=== PATIENT | female | born 1960 | race Caucasian/White ===

== ENCOUNTER 2023-12-07 19:59 | Inpatient (IN) | payer BC ==
[2023-12-07] MEDS ORDERED: ONDANSETRON 4 MG/2 ML VIAL ONE (21:06)
[2023-12-07] MEDS ORDERED: HYDROMORPHONE HCL 1 MG/ML INJ ONE ×2 (21:06→23:10)
[2023-12-07 21:15] LABS: Absolute Basophils 0.1 K/uL (0-0.5); Absolute Lymphocytes (CBC) 0.8 K/uL (0.7-4.9); Absolute Monocytes 0.9 K/uL (0.1-1.3); Absolute Neutrophil 11.1 K/uL (1.8-8.0); Basophils % 0.9 % (0-1.3); Hematocrit 31.6 % (36.0-45.0); Hemoglobin 10.7 g/dL (12.0-15.0); Lymphocytes % 6.4 % (15.3-44.8); MCH 34.5 pg (27.0-35.0); MCV 101.3 fL (80-100); Monocytes % 6.8 % (3.3-12.3); Neutrophils % 85.9 % (41.7-73.7); Nucleated RBC Absolute Count 0.2 (0-0); Nucleated Red Blood Cells % 1.2 % (0-0); Platelets 170 thou/uL (152-406); RBC Red Blood Cell Count 3.12 M/uL (3.86-4.86); Red Cell Distribution Width 20.6 % (12.1-15.2)
[2023-12-07 21:40] LABS: Anisocytosis 1+; Blood Morphology Comment NOTED (NOT SEEN); Platelets Clumped A; White Blood Cell Scan OK (OK)
[2023-12-07 21:41] LABS: Platelet Estimate ADEQ
[2023-12-07 22:06] LABS: Albumin 1.7 g/dL (3.4-5.0); Albumin/Globulin Ratio 0.4 (1.1-1.8); Anion Gap 12.1 mEq/L (5.0-15.0); Bilirubin Total 0.4 mg/dL (0.2-1.0); Globulin 4.8 g/dL (2.3-3.5); Potassium 4.1 mEq/L (3.5-5.1); Protein, Total 6.5 g/dL (6.4-8.2)
--- NOTE | 2023-12-07 22:33 | RAD REPORT ---
EXAMINATION: CT ABDOMEN AND PELVIS WITH CONTRAST CLINICAL INDICATION: Abdominal pain TECHNIQUE: CT abdomen and pelvis was performed, after the administration of 100 cc Isovue-300.. Sagit gisell and coronal reconstructions were obtained. One or more of the following dose reduction techniques were used: Automated exposure control, adjustment of the mA and/or kV according to patien t size, and/or iterative reconstruction. Unless otherwise specified, incidental findings do not require dedicated imaging follow-up. [id number]. Oral contrast was not given which limits evaluation of b owel and appendix. COMPARISON: none FINDINGS: 3.6 cm cyst right lobe of the liver. Spleen, adrenals unremarkable. Horseshoe kidney. Couple tiny calculi. No hydronephrosis. Ill-defined fluid is present between the pancreatic head and neck and inferior aspect of the stomach. The fluid also extends to abutting the second portion of the duodenum. No pseudocyst seen. The pancreas is normal size and density. No evidence of diverticulitis. No adnexal mass. Normal appendix IMPRESSION: Ill-defined fluid adjacent to the pancreas, stomach and duodenum. This probably represents an atypica l appearing pancreatitis. Other considerations are that the fluid is the result of gastric or duodenal inflammation. This should be correlated with pancreatic enzymes. Tiny nonobstructing calculi within a horseshoe kidney
[2023-12-07] MEDS ORDERED: ACETAMINOPHEN 325 MG TABLET PO PRN (22:55)
--- NOTE | 2023-12-07 22:55 | P.HP ---
Certification for Inpatient Patient admitted to: Inpatient With expected LOS: >2 Midnights Practitioner: I am a practitioner with admitting privileges, knowledge of patient current condition, hospital course, and medical plan of care. Services: Services provided to patient in accordance with Admission requirements found in Title 42 Section 412.3 of the Code of Federal Regulations Patient History Date of Service: 12/08/23 Reason for admission: Abdominal pain History of Present Illness: 63 yo female with past medical history of glioblastoma multiforme on chemotherapy brought to ER with abdominal pain. Started having left upper abdominal pain 3 days ago which has been getting worse associated with distention of the abdomen. Denies any nausea vomiting or diarrh ea. No fever or chills. Denies any chest pain or shortness of breath. No sick contacts. Pain is sharp nonradiating 8 out of 10 in severity Patient was assessed in the ER and had a CT which was consistent with possible pancreatitis and was admitted for further management . Allergies No Known Allergies Allergy (Unverified 12/08/23 05:19) Home medications list reviewed: Yes - Past Medical/Surgical History Has patient received pneumonia vaccine in the past: Yes Past Medical History: Reviewed- Non-Contributory -: glioblastoma Past Surgical History: Reviewed- Non-Contributory - Family History Family History: Reviewed- Non-Contributory - Social History Smoking Status: Never smoker Review of Systems 10-point ROS is otherwise unremarkable Physical Examination - Vital Signs Temperature: 97.2 F Blood Pressure: 148/78 Pulse: 76 Respirations: 18 Pulse Ox (%): 94 - Physical Exam General: Alert, In no apparent distress, Oriented x3 HEENT: Atraumatic, Normocephalic Neck: Supple, 2+ carotid pulse no bruit Respiratory: Clear to auscultation bilaterally, Normal air movement Cardiovascular: Normal pulses, Regular rate/rhythm, Normal S1 S2 Capillary refill: <2 Seconds Gastrointestinal: Soft and benign, W/out hepatosplenomegaly, Tenderness Musculoskeletal: No clubbing, No swelling Integumentary: No rashes, No breakdown Neurological: Normal speech, Normal strength at 5/5 x4 extr, Cranial nerves 3-12 intact Lymphatics: No axilla or inguinal lymphadenopathy - Studies Laboratory Data (last 24 hrs) 12/07/23 12/07/23 21:03 21:03 WBC 12.90 H Hgb 10.7 L Hct 31.6 L Plt Count 170 Sodium 135 L Potassium 4.1 BUN 29 H Creatinine 0.96 Glucose 137 H Total Bilirubin 0.4 AST 30 ALT 71 H Alkaline Phosphatase 90 Lipase 70 Assessment and Plan - Plan Intractable abdominal pain CT findings noted Fluid collection in pancreatic head area Pancreatitis versus duodenitis Lipase is normal Started on PPI IV Pain control Hyponatremia Dehydration IV hydration Monitor closely LFTs elevated Trend LFTs Leukocytosis Started on Zosyn GI/DVT prophylaxis Advanced directive full code Discharge Plan: Home Plan to discharge in: 48 Hours - Advance Directives Does patient have a Living Will: No Does patient have a Durable POA for Healthcare: No - Code Status/Comfort Care Code Status: Full Code Time Spent Managing Pts Care (In Minutes): 48
[2023-12-07] MEDS: NA CHLORIDE 0.9% 1,000 ML IV SCH (23:00)
[2023-12-07 23:20] LABS: Sqamous Epithelial <5 /HPF (None Seen); Urine Bacteria None Seen /HPF (<20); Urine Bilirubin NEGATIVE (Negative); Urine Blood Negative (Negative); Urine Clarity Clear (Clear); Urine Color Light-Yellow (Yellow); Urine Culture Reflex Order NOT NEEDED; Urine Glucose NEGATIVE (Negative); Urine Ketones NEGATIVE (Negative); Urine Microscopic Reflex YN ORDER UMIC; Urine Mucus Slight /HPF (None Seen); Urine Nitrite NEGATIVE (Negative); Urine Protein TRACE (Negative); Urine RBC <5 /HPF (None Seen); Urine Urobilinogen Normal (Normal); Urine WBC <5 /HPF (<5); Urine pH 6.5 (5.0-7.0)
[2023-12-07 23:22] LABS: Specific Gravity > 1.030 (1.005-1.030)
--- NOTE | 2023-12-07 23:23 | EDPHYS ---
Physician Documentation [facility] Name: Dunia Lau Age: 63 yrs Sex: Female : 1960 Arrival Date: 12/07/2023 Time: 19:59 Bed 16 Private MD: ED Physician Philippe Ellis HPI: 12/07 01:16 This 63 yrs old Female presents to ER via Wheelchair with complaints of Abdominal Pain. rt 01:16 Patient with history of glioblastoma on chemotherapy presents to the ED with epigastric rt pain rating to the back. Has never had similar symptoms previously. Symptoms have been present for the past 3 days, worsening today. Reports nausea and vomiting. Denies of acute complaints, symptoms are moderate in severity, no other aggravating or alleviating factors.. Historical: - Allergies: 12/06 21:13 No Known Allergies; cm10 - PMHx: 21:13 Glioblastoma Miltiforme; cm10 - Immunization history:: Adult Immunizations up to date. - Infectious Disease History:: Denies. - Social history:: Smoking status: Patient denies any tobacco usage or history of. - Family history:: not pertinent. ROS: 12/07 01:16 Constitutional: Negative for fever, chills, and weight loss, Cardiovascular: Negative rt for chest pain, palpitations, and edema, Respiratory: Negative for shortness of breath, cough, wheezing, and pleuritic chest pain, MS/Extremity: Negative for injury and deformity, Skin: Negative for injury, rash, and discoloration, Neuro: Negative for headache, weakness, numbness, tingling, and seizure, Abdomen/GI: Positive for abdominal pain, nausea, Exam: 01:16 Constitutional: This is a well developed, well nourished patient who is awake, alert, rt and in no acute distress. Head/Face: Normocephalic, atraumatic. Chest/axilla: Normal chest wall appearance and motion. Nontender with no deformity. No lesions are appreciated. Cardiovascular: Regular rate and rhythm with a normal S1 and S2. No gallops, murmurs, or rubs. Normal PMI, no JVD. No pulse deficits. Respiratory: Lungs have equal breath sounds bilaterally, clear to auscultation and percussion. No rales, rhonchi or wheezes noted. No increased work of breathing, no retractions or nasal flaring. Skin: Warm, dry with normal turgor. Normal color with no rashes, no lesions, and no evidence of cellulitis. MS/ Extremity: Pulses equal, no cyanosis. Neurovascular intact. Full, normal range of motion. Neuro: Awake and alert, GCS 15, oriented to person, place, time, and situation. Cranial nerves II-XII grossly intact. Motor strength 5/5 in all extremities. Sensory grossly intact. Cerebellar exam normal. Normal gait. 01:16 Abdomen/GI: Tenderness to the epigastrium, no rebound, guarding, distention, Vital Signs: 12/06 21:12 BP 160 / 88; Pulse 72; Resp 19; Temp 97.7; Pulse Ox 98% on R/A; Weight 81.65 kg; Height cm10 5 ft. 4 in. ; Pain 12/16; 23:00 BP 131 / 98; Pulse 69; Resp 18; Pulse Ox 100% on 3 lpm NC; rg5 12/07 00:00 BP 127 / 89; Pulse 65; Resp 19; Pulse Ox 100% on 3 lpm NC; Pain 07/16; rg5 01:00 BP 111 / 94; Pulse 65; Resp 18; Pulse Ox 100% on R/A; rg5 02:00 BP 124 / 98; Pulse 64; Resp 15; Pulse Ox 100% on R/A; rg5 03:00 BP 116 / 93; Pulse 61; Resp 16; Pulse Ox 100% on R/A; rg5 04:00 BP 98 / 78; Pulse 92; Resp 17; Pulse Ox 100% on R/A; rg5 05:00 BP 112 / 87; Pulse 55; Resp 15; Pulse Ox 100% on R/A; rg5 12/06 21:12 Body Mass Index 30.90 (81.65 kg, 162.56 cm) cm10 12/06 21:12 Pain Scale: Adult cm10 12/07 00:00 Pain Scale: Adult rg5 MDM: 12/06 20:51 Patient medically screened. rt 12/07 01:16 Differential Diagnosis Pancreatitis, gastritis, bowel obstruction. Data reviewed: vital rt signs, nurses notes, lab test result(s), EKG, radiologic studies. Consideration of Admission/Observation Patient was admitted/placed on observation. Management of patient was discussed with the following: Hospitalist: Agrees to admit. I considered the following discharge prescriptions or medication management in the emergency department Medications were administered in the Emergency Department. See MAR. Independent interpretation of the following test(s) in the Emergency Department CT Scan: My interpretation is No bowel obstruction syndrome interpretation of CT scan images. Care significantly affected by the following chronic conditions: GBM. Counseling: I had a detailed discussion with the patient and/or guardian regarding the historical points, exam findings, and any diagnostic results supporting the discharge/admit diagnosis, lab results, radiology results, the need for further work-up and treatment in the hospital. Response to treatment: the patient's symptoms have mildly improved after treatment. 12/06 20:56 Order name: CBC with Diff; Complete Time: 22:35 rt 12/06 20:56 Order name: CMP; Complete Time: 22:35 rt 12/06 20:56 Order name: Lipase; Complete Time: 22:35 rt 12/06 20:56 Order name: Urinalysis w/ reflexes rt 12/06 21:41 Order name: CBC Smear Scan EDMS 12/06 23:00 Order name: Urinalysis w/ reflexes EDMS 12/06 23:00 Order name: CBC with Automated Diff EDMS 12/06 23:00 Order name: CBC with Automated Diff EDMS 12/06 23:00 Order name: Comprehensive Metabolic Panel EDMS 12/06 23:00 Order name: Comprehensive Metabolic Panel EDAR 12/07 09:11 Order name: Manual Differential EDMS 12/06 20:56 Order name: CT Abd/Pelvis - IV Contrast Only; Complete Time: 22:35 rt 12/06 20:56 Order name: IV Saline Lock; Complete Time: 21:03 rt 12/06 20:56 Order name: Labs collected and sent; Complete Time: 21:03 rt Administered Medications: 12/06 21:11 Drug: Ondansetron IVP 4 mg IVP once; over 2 minutes Route: IVP; Site: left antecubital; cm10 22:09 Follow up: Response: No adverse reaction rg5 21:11 Drug: HYDROmorphone IVP 1 mg IVP once Route: IVP; Site: left antecubital; cm10 22:09 Follow up: Response: No adverse reaction; Pain is decreased rg5 23:18 Drug: HYDROmorphone IVP 1 mg IVP once Route: IVP; Site: left antecubital; rg5 12/07 00:00 Follow up: Response: No adverse reaction; Pain is decreased rg5 Disposition Summary: 12/07/23 23:22 Hospitalization Ordered Notes: Hospitalization Status: Inpatient Admission rt Provider: Dilan Greenfield rt Condition: Fair rt Problem: new rt Symptoms: have improved rt Bed/Room Type: Standard rt Location: Telemetry/MedSurg (Inpatient)(12/08/23 11:05) bd Room Assignment: [facility](12/08/23 12:47) Diagnosis - Acute pancreatitis rt Forms: - Medication Reconciliation Form rt - SBAR form rt - Leadership Thank You Letter rt Signatures: Dispatcher [employer] EDMS Ketty Miranda bd Denisse Bowling RN RN iw Philippe Ellis MD MD rt Deonna Low rv1 Rani Eduardo RN RN cm10 Lucian Ayala RN RN rg5 Corrections: (The following items were deleted from the chart) 12/06 20:57 20:57 CBC+H.LAB.BRZ ordered. EDMS EDMS 20:57 20:57 COMPREHENSIVE METABOLIC PANEL+C.LAB.BRZ ordered. EDMS EDMS 20:57 20:57 LIPASE+C.LAB.BRZ ordered. EDMS EDMS 20:57 20:57 Urinalysis+U.LAB.BRZ ordered. EDMS EDMS 20:57 20:57 Abdomen Pelvis W Con+CT.RAD.BRZ ordered. EDMS EDMS 23:34 23:22 Telemetry/MedSurg (observation) rt rv1 23:34 23:22 rt rv1 12/07 11:05 12/06 23:34 [facility] ER HOLD rv1 bd 12/07 11:05 12/06 23:34 ERHOLD- rv1 bd 12/07 12:47 11:05 203 bd iw
--- NOTE | 2023-12-07 23:23 | ER ---
Nurse's Notes [facility] Name: Dunia Lau Age: 63 yrs Sex: Female : 1960 Arrival Date: 12/07/2023 Time: 19:59 Bed 16 Private MD: Diagnosis: Acute pancreatitis Presentation: 12/06 21:12 Chief complaint: Patient states: Left upper abdominal pain onset 3 days ago. pt states cm10 that the pain got worse today. Pt also reports that her abdomen is distended. Coronavirus screen: Client denies travel out of the [place] in the last 14 days. Ebola Screen: Patient denies travel to an Ebola-affected area in the 21 days before illness onset. No symptoms or risks identified at this time. Initial Sepsis Screen: Does the patient meet any 2 criteria? No. Patient's initial sepsis screen is negative. Does the patient have a suspected source of infection? No. Patient's initial sepsis screen is negative. Risk Assessment: Do you want to hurt yourself or someone else? Patient reports no desire to harm self or others. Onset of symptoms was December 04, 2023. 21:12 Method Of Arrival: Wheelchair cm10 21:12 Acuity: FREDDY 3 cm10 Triage Assessment: 21:14 General: Appears in no apparent distress. uncomfortable, Behavior is calm, cooperative. cm10 Pain: Complains of pain in left upper quadrant Pain currently is 10 out of 10 on a pain scale. Neuro: No deficits noted. Level of Consciousness is awake, alert, obeys commands, Oriented to person, place, time, situation, Appropriate for age. Respiratory: No deficits noted. Airway is patent Respiratory effort is even, unlabored, Respiratory pattern is regular, symmetrical. GI: Abdomen is distended, Reports upper abdominal pain. Historical: - Allergies: 21:13 No Known Allergies; cm10 - PMHx: 21:13 Glioblastoma Miltiforme; cm10 - Immunization history:: Adult Immunizations up to date. - Infectious Disease History:: Denies. - Social history:: Smoking status: Patient denies any tobacco usage or history of. - Family history:: not pertinent. Screenin:14 [facility] ED Fall Risk Assessment (Adult) History of falling in the last 3 months, cm10 including since admission No falls in past 3 months (0 pts) Confusion or Disorientation No (0 pts) Intoxicated or Sedated No (0 pts) Impaired Gait Yes (1 pt) Mobility Assist Device Used Yes (1 pt) Altered Elimination No (0 pt) Score/Fall Risk Level 0 - 2 = Low Risk Oriented to surroundings, Maintained a safe environment, Hourly rounding (assess needs \T\ fall precautionary measures) done. Abuse screen: Denies threats or abuse. Denies injuries from another. Nutritional screening: No deficits noted. Tuberculosis screening: No symptoms or risk factors identified. Assessment: 22:00 Reassessment: Patient and/or family updated on plan of care and expected duration. Pain rg5 level reassessed. Patient is alert, oriented x 3, equal unlabored respirations, skin warm/dry/pink. 23:00 Reassessment: Patient and/or family updated on plan of care and expected duration. Pain rg5 level reassessed. Patient is alert, oriented x 3, equal unlabored respirations, skin warm/dry/pink. 12/07 00:00 Reassessment: Patient and/or family updated on plan of care and expected duration. Pain rg5 level reassessed. Patient is alert, oriented x 3, equal unlabored respirations, skin warm/dry/pink. Vital Signs: 12/06 21:12 BP 160 / 88; Pulse 72; Resp 19; Temp 97.7; Pulse Ox 98% on R/A; Weight 81.65 kg; Height cm10 5 ft. 4 in. ; Pain 12/16; 23:00 BP 131 / 98; Pulse 69; Resp 18; Pulse Ox 100% on 3 lpm NC; rg5 12/07 00:00 BP 127 / 89; Pulse 65; Resp 19; Pulse Ox 100% on 3 lpm NC; Pain 07/16; rg5 01:00 BP 111 / 94; Pulse 65; Resp 18; Pulse Ox 100% on R/A; rg5 02:00 BP 124 / 98; Pulse 64; Resp 15; Pulse Ox 100% on R/A; rg5 03:00 BP 116 / 93; Pulse 61; Resp 16; Pulse Ox 100% on R/A; rg5 04:00 BP 98 / 78; Pulse 92; Resp 17; Pulse Ox 100% on R/A; rg5 05:00 BP 112 / 87; Pulse 55; Resp 15; Pulse Ox 100% on R/A; rg5 12/06 21:12 Body Mass Index 30.90 (81.65 kg, 162.56 cm) cm10 12/06 21:12 Pain Scale: Adult cm10 12/07 00:00 Pain Scale: Adult rg5 ED Course: 12/06 20:11 Patient arrived in ED. gm2 20:14 Philippe Ellis MD is Attending Physician. rt 20:51 Rani Eduardo, RN is Primary Nurse. cm10 21:00 Initial lab(s) drawn, by me, sent to lab. Inserted saline lock: 22 gauge in left cm10 antecubital area, using aseptic technique. Blood collected. Flushed with 10 mL NS Missed attempt(s): 22 gauge in right antecubital area. Bleeding controlled, band aid applied, catheter tip intact. 21:03 CBC with Diff Sent. cm10 21:03 CMP Sent. cm10 21:03 Lipase Sent. cm10 21:13 Triage completed. cm10 21:14 Arm band placed on Patient placed in an exam room, on a stretcher, on pulse oximetry. cm10 21:16 Patient has correct armband on for positive identification. Bed in low position. Call cm10 light in reach. Side rails up X2. Provided Education on: ER process and procedures.. Pulse ox on. NIBP on. 21:55 CT Abd/Pelvis - IV Contrast Only In Process Unspecified. EDMS 22:05 [address] back from CT. cm10 22:06 Report given to RICH Epstein. cm10 23:08 Urinalysis w/ reflexes Sent. al5 23:22 Dilan Greenfield MD is Hospitalizing Provider. rt 23:35 No apparent distress. Resting quietly. Awaiting bed assignment. rg5 23:35 No provider procedures requiring assistance completed. rg5 23:35 Patient admitted, IV remains in place. intact, No redness/swelling at site. rg5 12/07 03:36 Lucian Ayala, RN is Primary Nurse. rg5 11:[address] Medina at the bedside discussing plan of care. 1137 CM met wit and ane her Omid at the bedside in the ED exam room. Patient identified by name and . Demographic sheet confirmed. Patient states she lives with Omid in a single story home . She reports that prior to admission, she performs ADLs using a walker and assistance from Omid is the primary caregiver. DME in the home includes a wheelchair, shower chair, handicap bathroom with barrel cooper bars. MPOA is in place. No HH, home oxygen at this time. Patient receives chemotherapy every other [facility] at the [facility]. Patient states ultimate plan is to return home upon discharge, continue chemotherapy and Omid states he will transport patient home. CM team will continue to follow and coordinate care during this hospital stay. Administered Medications: 12/06 21:11 Drug: Ondansetron IVP 4 mg IVP once; over 2 minutes Route: IVP; Site: left antecubital; cm10 22:09 Follow up: Response: No adverse reaction rg5 21:11 Drug: HYDROmorphone IVP 1 mg IVP once Route: IVP; Site: left antecubital; cm10 22:09 Follow up: Response: No adverse reaction; Pain is decreased rg5 23:18 Drug: HYDROmorphone IVP 1 mg IVP once Route: IVP; Site: left antecubital; rg5 12/07 00:00 Follow up: Response: No adverse reaction; Pain is decreased rg5 Medication: 12/06 21:14 VIS not applicable for this client. cm10 Outcome: 23:22 Decision to Hospitalize by Provider. rt 23:35 Admitted to ER Hold. Please see [facility] for further documentation. rg5 23:35 Condition: stable 23:35 Instructed on the need for admit, 12/07 12:57 Patient left the ED. kc6 Signatures: Dispatcher [employer] EDDenice Cortez RN RN kc6 Philippe Ellis MD MD rt Rani Eduardo RN RN cm10 Juana Hammond 2 Lucian Ayala RN RN rg5 Kelly Thomas RN RN al5 Angelika Ochoa RN RN ane Corrections: (The following items were deleted from the chart) 03:57 03:56 GI: rg5 rg5
[2023-12-08] MEDS ORDERED: SODIUM CHLORIDE 0.9% 10ML INJ IV PRN (01:12)
[2023-12-08] MEDS: PANTOPRAZOLE 40 MG INJ IVP SCH (01:12)
[2023-12-08] MEDS: MORPHINE 2 MG/ML SYR IV PRN (01:35)
[2023-12-08] MEDS ORDERED: NA CHLORIDE 0.9% 1,000 ML ONE (03:46)
[2023-12-08] MEDS ORDERED: MORPHINE 2 MG/ML SYR ONE (03:46)
[2023-12-08] MEDS ORDERED: PANTOPRAZOLE 40 MG INJ ONE ×2 (03:46→08:56)
[2023-12-08 04:55] VITALS: BMI 30.9
[2023-12-08 07:36] LABS: Absolute Lymphocytes (CBC) 0.5 K/uL (0.7-4.9); Absolute Monocytes 0.5 K/uL (0.1-1.3); Absolute Neutrophil 8.8 K/uL (1.8-8.0); Basophils % 0.3 % (0-1.3); Hematocrit 29.1 % (36.0-45.0); Hemoglobin 9.6 g/dL (12.0-15.0); Lymphocytes % 5.2 % (15.3-44.8); MCV 103.2 fL (80-100); MPV 7.3 fL (7.6-11.3); Monocytes % 5.4 % (3.3-12.3); Neutrophils % 89.1 % (41.7-73.7); Nucleated RBC Absolute Count 0.1 (0-0); Nucleated Red Blood Cells % 0.8 % (0-0); Platelets 119 thou/uL (152-406); RBC Red Blood Cell Count 2.82 M/uL (3.86-4.86); Red Cell Distribution Width 20.3 % (12.1-15.2)
[2023-12-08 07:47] LABS: Albumin 2.4 g/dL (3.4-5.0); Albumin/Globulin Ratio 0.7 (1.1-1.8); Bilirubin Total 0.4 mg/dL (0.2-1.0); Globulin 3.5 g/dL (2.3-3.5); Protein, Total 5.9 g/dL (6.4-8.2)
[2023-12-08] MEDS ORDERED: ENOXAPARIN 40 MG/0.4 ML SQ ONE (08:57)
[2023-12-08] MEDS: ENOXAPARIN 40 MG/0.4 ML SQ SCH (09:00)
[2023-12-08 09:10] LABS: Band Neutrophils 6 % (0-1); Differential Total Cells Count 100; Lymphocytes 5 % (15-42); Metamyelocytes 1 % (0-0); Monocytes 3 % (0-10); Myelocytes 2 % (0-0); Nucleated Red Blood Cells 2 /100WBC; Platelet Estimate DECR; Segmented Neutrophils 83 % (40-80)
[2023-12-08 09:11] LABS: Anisocytosis 1+; Blood Morphology Comment NOTED (NOT SEEN); Macrocytosis 1+
[2023-12-08] MEDS ORDERED: HYDROCODONE/APAP 5/325 MG TAB ONE (10:54)
[2023-12-08] MEDS: HYDROCODONE/APAP 5/325 MG TAB PO PRN (11:02)
--- NOTE | 2023-12-08 14:25 | P.PN ---
Subjective Date of Service: 12/08/23 Chief Complaint: Abdominal pain Patient reports persistent upper abdominal pain. No reported vomiting. She tolerated oral medications in the ER. Patient denies any diarrhea. No recorded fever. Physical Examination - Vital Signs Temperature: 97.7 F Blood Pressure: 112/87 Pulse: 55 Respirations: 15 Pulse Ox (%): 100 - Studies Laboratory Data (last 24 hrs) 12/07/23 12/07/23 21:03 21:03 WBC 12.90 H Hgb 10.7 L Hct 31.6 L Plt Count 170 Sodium 135 L Potassium 4.1 BUN 29 H Creatinine 0.96 Glucose 137 H Total Bilirubin 0.4 AST 30 ALT 71 H Alkaline Phosphatase 90 Lipase 70 Assessment And Plan - Plan Physical examination General: Alert and oriented x3, NAD, HEENT: Conjunctiva not pale, anicteric sclera Neck: Supple, no elevated JVD Heart: Heart sounds 1 and 2 normal, regular rhythm, normal rate, no pedal edema Lungs: Clear to auscultation bilaterally, adequate breath sounds bilaterally, no rhonchi or crackles. Abdomen: Soft, nondistended, epigastric tenderness, normal bowel sounds. Extremities: No tenderness, no deformity Skin: Normal skin turgor, no rash, no nodules or ulcers. Neuro: No focal motor deficit. Normal speech. Psychiatry: Normal mood, no agitation. Plan: Intractable abdominal pain Fluid collection in pancreatic head area Pancreatitis versus duodenitis Lipase is normal Continue IV Protonix Clear liquid diet Analgesics and antiemetics as needed. IV hydration Empiric IV Zosyn Obtain liver ultrasound Hyponatremia Dehydration IV hydration Monitor BMP Elevated AST Unknown significance Monitor LFT Leukocytosis Leukocytosis resolved Patient is on empiric Zosyn GI/DVT prophylaxis: Lovenox Advanced directive full code
[2023-12-08] MEDS: PIPER TAZO 3.375 GM in NA CHLORIDE 0.9% 100 ML IV SCH (16:03)
--- NOTE | 2023-12-08 17:34 | RAD REPORT ---
EXAM: Liver Only HISTORY: [facility] MAIN Pancreatitis, elevated LFT COMPARISON: None TECHNIQUE: Sonographic grayscale and color flow imaging of the upper abdominal quadrants were obtaine d. FINDINGS: Liver is normal in size. No suspicious focal masses. Homogeneous echotexture and mildly increased ech ogenicity. Incidentally anechoic thin-walled ovoid cyst in the inferior right lobe anteriorly measuring 3.2 x 2.2 x 2.9 cm. No intrahepatic biliary ductal dilation. Spleen measures 10.2 cm in long axis. No focal abnormalities IMPRESSION: Diffusely elevated hepatic parenchymal echogenicity suggesting steatosis. Benign-appearing right lobe 3.2 cm cyst.
[2023-12-08] MEDS: levETIRAcetam 500 MG TAB PO SCH (20:38)
[2023-12-08] MEDS: APIXABAN 5 MG TABLET PO SCH (20:39)
[2023-12-09 05:44] LABS: Absolute Lymphocytes (CBC) 0.7 K/uL (0.7-4.9); Absolute Monocytes 0.5 K/uL (0.1-1.3); Absolute Neutrophil 7.1 K/uL (1.8-8.0); Basophils % 0.3 % (0-1.3); Eosinophils % 0.2 % (0-4.4); Hematocrit 29.5 % (36.0-45.0); Lymphocytes % 8.6 % (15.3-44.8); MCH 34.9 pg (27.0-35.0); MCV 102.5 fL (80-100); MPV 7.1 fL (7.6-11.3); Monocytes % 5.8 % (3.3-12.3); Neutrophils % 85.1 % (41.7-73.7); Nucleated RBC Absolute Count 0.1 (0-0); Nucleated Red Blood Cells % 1.1 % (0-0); Platelets 103 thou/uL (152-406); RBC Red Blood Cell Count 2.88 M/uL (3.86-4.86); Red Cell Distribution Width 20.8 % (12.1-15.2)
[2023-12-09 06:02] LABS: Albumin 2.1 g/dL (3.4-5.0); Albumin/Globulin Ratio 0.6 (1.1-1.8); Anion Gap 7.1 mEq/L (5.0-15.0); Bilirubin Total 0.7 mg/dL (0.2-1.0); Globulin 3.6 g/dL (2.3-3.5); Potassium 4.1 mEq/L (3.5-5.1); Protein, Total 5.7 g/dL (6.4-8.2)
[2023-12-09] MEDS: ESCITALOPRAM 20 MG TAB PO SCH (09:19)
[2023-12-09] MEDS: EPINEPHRINE 1 MG/ML VIAL ONE (12:03)
[2023-12-09] MEDS ORDERED: LIDOCAINE 1% MPF 5 ML VIAL ONE (12:57)
[2023-12-09] MEDS ORDERED: propofoL 200 MG/20 ML VIAL IV ONE (12:57)
[2023-12-09] MEDS: FENTANYL CITR 100 MCG/2 ML ONE (13:22)
--- NOTE | 2023-12-09 14:40 | P.PN ---
Subjective Date of Service: 12/09/23 Chief Complaint: Abdominal pain Patient still complaining of epigastric pain. No vomiting since yesterday. Patient denies any diarrhea. No recorded fever. Physical Examination - Vital Signs Temperature: 97.8 F Blood Pressure: 100/62 Pulse: 75 Respirations: 18 Pulse Ox (%): 95 Assessment And Plan - Plan Physical examination General: Alert and oriented x3, NAD, HEENT: Conjunctiva not pale, anicteric sclera Neck: No elevated JVD Heart: Heart sounds 1 and 2 normal, regular rhythm, normal rate, no pedal edema Lungs: Clear to auscultation bilaterally, adequate breath sounds bilaterally, no rhonchi or crackles. Abdomen: Soft, nondistended, epigastric tenderness, normal bowel sounds. Extremities: No tenderness, no deformity Skin: Normal skin turgor, no rash, no nodules or ulcers. Neuro: No focal motor deficit. Psychiatry: Normal mood, no agitation. Plan: Intractable abdominal pain Fluid collection in pancreatic head area Pancreatitis versus duodenitis. GI consulted, patient evaluated by Dr. Chairez, EGD performed which showed gastritis. Lipase is normal Continue IV Protonix. Monitor lipase and amylase. CT angio abdomen per Dr. Chairez. Clear liquid diet Analgesics and antiemetics as needed. IV hydration Empiric IV Zosyn Liver ultrasound revealed-no evidence of gallstones or cholecystitis. Hyponatremia Dehydration Resolved with IV hydration Monitor BMP Elevated AST Unknown significance Resolved. Monitor LFT Leukocytosis Leukocytosis resolved Patient is on empiric Zosyn GI/DVT prophylaxis: Lovenox Advanced directive full code
[2023-12-09 15:50] LABS: Phosphorus 3.1 mg/dL (2.5-4.9)
--- NOTE | 2023-12-09 16:34 | RAD REPORT ---
EXAMINATION: CTA ABDOMEN AND PELVIS WITH CONTRAST CLINICAL INDICATION: Female, 63 years old.JOSE/perium pain, fluid abdomen TECHNIQUE: CTA abdomen and pelvis was performed, after the administration of IV contrast, as per [facility] protocol. MIPS were created. Axial, sagittal and coronal reconstructions were obtained. One or more of the following dose reduction techniques were used: Automated exposure control, adjustment of the mA and/or kV according to patient size, and/or iterative reconstruction. Unless otherwise specified, incidental findings do not require dedicated imaging follow-up. [id number]. COMPARISON: CT 12/07/2023 FINDINGS: VASCULAR: ABDOMINAL AORTA AND OTHER VESSELS: Normal caliber aorta and IVC. NONVASCULAR: LOWER CHEST: Basilar dependent airspace disease which may reflect atelectasis. LIVER: Hepatic steatosis. Low-density lesion right hepatic lobe has benign imaging features. GALLBLADDER/BILE DUCT: Distended gallbladder with probable sludge.? PANCREAS: Cystic lesion in the pancreatic body measuring 13 mm is unchanged. SPLEEN: Normal size. No focal lesion. ADRENALS: Normal; no mass. KIDNEYS AND URETERS: Horseshoe kidney. No hydronephrosis. Nephrolithiasis in both renal moieties. URINARY BLADDER: Normal contour. GASTROINTESTINAL TRACT: Gastric wall appears thickened. No bowel obstruction. Normal appendix. PERITONEUM: Trace fluid in the pelvis. Nonloculated appearing fluid present in the transverse mesocol on and along the greater curvature the stomach has modestly increased from prior. No loculated fluid identified. LYMPH NODES: No lymphadenopathy. REPRODUCTIVE ORGANS: No pathologic process MUSCULOSKELETAL: No acute or suspicious osseous abnormality. ADDITIONAL FINDINGS: None. IMPRESSION: Increased nonloculated fluid present along the transverse mesocolon and greater curvature of the stom ach. The source is unclear. It is likely reactive rather than related to a perforation as there is no free air. The gastric wall does appear diffusely thickened. Consider endoscopy for further evaluat ion. Acute hepatitis considered less likely. The major arterial structures are widely patent. Distended gallbladder with likely sludge. Correlate with LFTs. Cystic lesion at the pancreatic body may represent a intraductal papillary mucinous neoplasm (IPMN). Recommend 12 month follow-up MRCP.
[2023-12-09] MEDS ORDERED: MORPHINE 4 MG/ML SYR IV PRN (18:31)
[2023-12-09] MEDS: D5 0.9 NS 1,000 ML IV SCH (21:42)
[2023-12-10] MEDS: ONDANSETRON 4 MG/2 ML VIAL IV PRN (04:56)
[2023-12-10 05:24] LABS: Absolute Lymphocytes (CBC) 0.3 K/uL (0.7-4.9); Absolute Monocytes 0.5 K/uL (0.1-1.3); Absolute Neutrophil 5.6 K/uL (1.8-8.0); Basophils % 0.5 % (0-1.3); Eosinophils % 0.1 % (0-4.4); Hematocrit 27.2 % (36.0-45.0); Hemoglobin 9.4 g/dL (12.0-15.0); MCH 35.2 pg (27.0-35.0); MCHC 34.8 g/dL (32.0-36.0); MCV 101.2 fL (80-100); MPV 6.8 fL (7.6-11.3); Monocytes % 7.6 % (3.3-12.3); Nucleated Red Blood Cells % 0.5 % (0-0); Platelets 110 thou/uL (152-406); RBC Red Blood Cell Count 2.68 M/uL (3.86-4.86); Red Cell Distribution Width 20.2 % (12.1-15.2)
[2023-12-10 05:28] LABS: Neutrophils % 86.8 % (41.7-73.7)
[2023-12-10 05:51] LABS: Albumin 1.8 g/dL (3.4-5.0); Albumin/Globulin Ratio 0.5 (1.1-1.8); Anion Gap 7.3 mEq/L (5.0-15.0); Bilirubin Total 0.8 mg/dL (0.2-1.0); Globulin 3.6 g/dL (2.3-3.5); Potassium 3.3 mEq/L (3.5-5.1); Protein, Total 5.4 g/dL (6.4-8.2)
[2023-12-10] MEDS: POTASSIUM CL SA 10 MEQ TAB PO ONE (09:00)
--- NOTE | 2023-12-10 09:15 | RAD REPORT ---
EXAMINATION: Hepatobiliary System W/ Ph CLINICAL INDICATION: Abdominal pain TECHNIQUE: Hepatobiliary imaging was acquired over the abdomen for 60 minutes following intravenous a dministration of radiotracer. Slow intravenous administration of CCK. 1.6 mcg Additional imaging was acquired over the abdomen for minutes. Gallbladder ejection fraction was then calculated. RADIOPHARMACEUTICAL: 6 mCi Technetium 99m Mebrofenin. FINDINGS: There is prompt accumulation of the radiopharmaceutical in the liver and excretion into the biliary d uctal system, gallbladder, and small bowel. Gallbladder ejection fraction was calculated at 10% (normal range >35%). Patient was asymptomatic prior to entering administration of CCK IMPRESSION: No evidence of acute cholecystitis Diminished gallbladder contraction may indicate biliary dyskinesis
--- NOTE | 2023-12-10 12:48 | P.PN ---
Subjective Date of Service: 12/10/23 Chief Complaint: Abdominal pain Patient reports her abdominal pain is much better today. feels patient's abdominal pain is worse with meals. She had an episode of nausea this morning. No reported diarrhea No recorded fever. Physical Examination - Vital Signs Temperature: 97.6 F Blood Pressure: 146/73 Pulse: 90 Respirations: 18 Pulse Ox (%): 92 Assessment And Plan - Plan Physical examination General: Alert and oriented x3, NAD, HEENT: Anicteric sclera Neck: No elevated JVD Heart: Heart sounds 1 and 2 normal, regular rhythm, normal rate, no pedal edema Lungs: Clear to auscultation bilaterally, adequate breath sounds bilaterally, no rhonchi or crackles. Abdomen: Soft, nondistended, epigastric tenderness, normal bowel sounds. Extremities: No tenderness, no deformity Skin: Normal skin turgor, no rash, no nodules or ulcers. Neuro: No focal motor deficit. Psychiatry: Normal mood, no agitation. Plan: Intractable abdominal pain Fluid collection in pancreatic head area. Fluid collection likely secondary to pancreatitis GI consulted, patient seen by Dr. Chairez who performed EGD EGD showed gastritis. Lipase is normal. CT abdomen and pelvis shows a distended gallbladder, no gallstones. HIDA scan is negative for acute cholecystitis but indicated biliary dyskinesia. Obtain MRCP to further evaluate the pancreas and CBD. General surgery Dr. Nielsen consulted for input. Continue IV Protonix. Monitor lipase and amylase. Clear liquid diet as tolerated Analgesics and antiemetics as needed. IV hydration Continue IV Zosyn Liver ultrasound revealed-no evidence of gallstones or cholecystitis. Hyponatremia Dehydration Resolved with IV hydration Monitor BMP. Hypokalemia Optimize potassium as needed Elevated AST Unknown significance Resolved. Monitor LFT Leukocytosis Leukocytosis resolved Patient is on empiric Zosyn GI/DVT prophylaxis: Lovenox Advanced directive full code
[2023-12-10] MEDS ORDERED: NA CHLORIDE 0.9% 1,000 ML IV SCH (14:00)
--- NOTE | 2023-12-10 14:22 | RAD REPORT ---
EXAM: CT brain without contrast HISTORY: AMS history of brain neoplasm. COMPARISON: 11/25/2023, 06/03/2023, 04/22/2023 TECHNIQUE: Multiple contiguous axial images were obtained and a CT of the brain without contrast. Sag ittal and coronal reformats were performed. One or more of the following dose reduction techniques were used: Automated exposure control, adjust ment of the mA and/or kV according to patient size, and/or iterative reconstruction. FINDINGS: There is a large amount of cerebral edema seen involving the right cerebral hemisphere. This is progr essive since MRI study most recently performed on 11/25/2023. Mass lesion in the right temporoparietal region posteriorly again seen with slight increased density component. No bleed is se en. Significant right to left midline shift has developed since the prior MRI measuring 15 mm. Dilatation of the left lateral ventricle is seen likely related to the degree of midline shift. There is evidence of previous right posterior craniotomy. The visualized paranasal sinuses and mastoi d air cells are essentially clear. IMPRESSION: Significant right-sided cerebral hemisphere edema is present with 15 mm [id number] midline shift o n today's study noted. Both of these findings are significantly progressive since 11/25/2023 prior MRI study. The findings were communicated with Dr. Medina at 12/10/2023 2:17 PM by telephone.
[2023-12-10 14:27] VITALS: O2SAT 100
[2023-12-10 14:29] LABS: Arterial Blood Carboxyhemoglob 2.2 % (0-1.5); Blood Gas Oxyhemoglobin 96.6 % (94-97); Blood Gas THB 8.4 g/dl (12-18); Blood O2 Saturation 99.7 % (92-98.5)
[2023-12-10 14:40] LABS: Absolute Basophils 0.1 K/uL (0-0.5); Absolute Lymphocytes (CBC) 0.3 K/uL (0.7-4.9); Absolute Monocytes 0.5 K/uL (0.1-1.3); Absolute Neutrophil 5.6 K/uL (1.8-8.0); Basophils % 0.8 % (0-1.3); Eosinophils % 0.5 % (0-4.4); Hematocrit 26.8 % (36.0-45.0); Hemoglobin 8.9 g/dL (12.0-15.0); Lymphocytes % 4.7 % (15.3-44.8); MCH 34.6 pg (27.0-35.0); MCHC 33.4 g/dL (32.0-36.0); MCV 103.5 fL (80-100); MPV 7.7 fL (7.6-11.3); Monocytes % 7.9 % (3.3-12.3); Neutrophils % 86.1 % (41.7-73.7); Nucleated Red Blood Cells % 0.6 % (0-0); Platelets 85 thou/uL (152-406); RBC Red Blood Cell Count 2.59 M/uL (3.86-4.86); Red Cell Distribution Width 20.7 % (12.1-15.2)
[2023-12-10] MEDS: LEVETIRACETAM 500 MG/5 ML VIAL IV ONE (14:41)
--- NOTE | 2023-12-10 14:50 | RAD REPORT ---
EXAMINATION: CTA HEAD CLINICAL INDICATION: CVA r/o TECHNIQUE: Axial CT images were obtained through the head after intravenous contrast utilizing angiog raphic protocol with 3D post-processing (maximum intensity projection images, volume rendered images and/or shaded surface rendered images). One or more of the following dose reduction technique s were used: Automated exposure control, adjustment of the mA and/or kV according to patient size, and/or iterative reconstruction. Unless otherwise specified, incidental findings do not require dedic ated imaging follow-up. COMPARISON: Multiple prior [employer] imaging was reviewed. FINDINGS: ICA: The petrous, cavernous, and supraclinoid segments of the bilateral internal carotid arteries are normal. The ophthalmic artery origins are visualized and normal. The posterior communicating arteries are patent. ERIN: Anterior cerebral arteries are normal bilaterally. The anterior communicating artery is patent. MCA: Middle cerebral arteries are normal bilaterally. REGIONAL CLINICAL DIRECTOR: Posterior cerebral arteries are normal bilaterally. Vertebrobasilar: The vertebral arteries are patent. The basilar artery is normal in appearance. 3D images confirm these findings. IMPRESSION: No significant flow abnormality is identified. Significant intracranial findings are separately reported dedicated CT head same date, please referen ce report.
--- NOTE | 2023-12-10 14:52 | RAD REPORT ---
EXAMINATION: CTA NECK CLINICAL INDICATION: CVA r/o TECHNIQUE: Axial CT images were obtained from the aortic arch to the skull base after intravenous con trast utilizing angiographic protocol with 3D post-processing (maximum intensity projection images, volume rendered images and/or shaded surface rendered images). One or more of the following dose redu ction techniques were used: Automated exposure control, adjustment of the mA and/or kV according to patient size, and/or iterative reconstruction. Unless otherwise specified, incidental findings do not require dedicated imaging follow-up. COMPARISON: Multiple prior [employer] imaging was reviewed. FINDINGS: AORTA: The imaged aortic arch is normal. CCA: The common carotid arteries are patent and normal in caliber. ICA/ECA: Bilateral internal and external carotid arteries are patent. There is no significant interna l carotid artery stenosis. Mild plaque is suspected in both carotid bulbs. VERTEBRAL: The cervical vertebral arteries are patent. The vertebral arteries are codominant. SOFT TISSUE: No significant neck soft tissue abnormalities. The visualized lung apices are clear. 3D images confirm these findings. IMPRESSION: No significant flow abnormality of the neck vessels is identified. NASCET criteria used. Mild 0-49% stenosis Moderate 50-69% stenosis Severe 70-99% stenosis
--- NOTE | 2023-12-10 15:00 | RAD REPORT ---
EXAMINATION: ONE VIEW CHEST XR CLINICAL INDICATION: Stroke Protocol TECHNIQUE: Frontal chest projection is submitted. Examination is limited by patient positioning and t echnique. COMPARISON: No prior exam. FINDINGS: Underinflated lungs are noted with atelectasis in both lung bases. The heart is upper limit of normal in size. Prominent degenerative changes left shoulder. IMPRESSION: Underinflated lungs with atelectasis in both lung bases.
[2023-12-10 15:23] LABS: Anion Gap 7.9 mEq/L (5.0-15.0)
[2023-12-10 15:24] LABS: Potassium 3.9 mEq/L (3.5-5.1)
[2023-12-10 15:30] LABS: PT Prothrombin Time 14.4 SECONDS (9.4-12.5); PTT, Activated Partial Thromb 29.3 SECONDS (24.3-36.9); Protime INR 1.3
[2023-12-10] MEDS: levETIRAcetam 750 MG in NA CHLORIDE 0.9% 100 ML IV SCH (15:59)
[2023-12-10] MEDS: FAMOTIDINE 20 MG/2 ML VIAL IV SCH (16:00)
[2023-12-10] MEDS: dexAMETHasone 4 MG/ML VIAL IV SCH (16:00)
[2023-12-10] MEDS: Mupirocin NASAL 2 APPL/1 GM TUBE NAS SCH (16:00)
--- NOTE | 2023-12-10 16:06 | RAD REPORT ---
EXAMINATION: ONE VIEW CHEST XR CLINICAL INDICATION: et tube placement TECHNIQUE: Frontal chest projection is submitted. Examination is limited by patient positioning and t echnique. COMPARISON: 12/10/2023 FINDINGS: Tip of endotracheal tube is at the level of the superior aortic arch. Enteric tube descends into the stomach. The lungs are grossly clear. The heart is upper limit normal size.
[2023-12-10] MEDS: propofoL 1,000 MG/100 ML VIAL IV SCH (16:17)
[2023-12-10] MEDS: METHYLPRED NA SUC 1,000 MG in NA CHLORIDE 0.9% 100 ML IV ONE (16:18)
--- NOTE | 2023-12-10 16:42 | P.CNS ---
Date of Consult: 12/10/23 Reason for Consult: Resp failure Chief Complaint: Resp failure Allergies No Known Allergies Allergy (Unverified 12/08/23 05:19) Home Medications: Apixaban [Eliquis] 5 mg PO BID 12/08/23 Escitalopram Oxalate 10 mg PO DAILY 12/08/23 Levetiracetam [Keppra] 750 mg PO BID 12/08/23 dexAMETHasone [Dexamethasone] 4 mg PO BID 12/08/23 - Past Medical/Surgical History -: glioblastoma Physical Examination Temp Pulse Resp BP Pulse Ox 97.6 F 115 H 31 H 139/96 H 100 12/10/23 12:51 12/10/23 15:30 12/10/23 15:30 12/10/23 15:30 12/10/23 15:30 - Problems (1) Respiratory failure Current Visit: Yes Status: Acute Plan: Pt i s63 yrs of age aw Abdominal pain intubated became unreponsive has cerebral doreen awith midline shift.unresponsive to deep pain stimuli . Labs reviewed. Stable for transfer CXRY clear ET tube satis. Oxygen satis. Fio2 40% Vent settings reviewed Qualifiers: Chronicity: acute
[2023-12-10 16:47] LABS: Anisocytosis 1+; Blood Morphology Comment NOTED (NOT SEEN); Platelet Estimate DECR; White Blood Cell Scan OK (OK)
[2023-12-10 16:48] LABS: Poikilocytosis 1+
[2023-12-10 17:07] VITALS: BP 144/99; TEMP 98.6
[2023-12-10] MEDS ORDERED: SUCCINYLCHOLINE 20 MG/ML (10 ML) IV ONE (17:09)
[2023-12-10] MEDS ORDERED: ETOMIDATE 20 MG/10 ML VIAL IV ONE (17:09)
--- NOTE | 2023-12-10 17:37 | RAD REPORT ---
EXAMINATION: ONE VIEW CHEST XR CLINICAL INDICATION: picc TECHNIQUE: Frontal chest projection is submitted. Examination is limited by patient positioning and t echnique. COMPARISON: 12/10/2023, more remote studies FINDINGS: Right-sided PICC line has its tip in the SVC. The lungs are mildly underinflated. ET tube tip is abov e the michael at the level of the superior aortic arch. No displaced fractures identified.
[2023-12-10] MEDS: MIDAZOLAM HCL 2 MG/2 ML INJ IV PRN (17:55)
--- NOTE | 2023-12-10 17:59 | P.DS ---
Admission Date: 12/07/23 Discharge Date: 12/10/23 Disposition: TRANSFER TO [facility] Discharge Condition: FAIR Reason for Admission: Resp failure Brief History of Present Illness: 63 yo female with past medical history of glioblastoma multiforme on chemotherapy was brought to ER with abdominal pain of 3 days duration, associated with abdominal distension. No associated nausea vomiting or diarrhea. Patient was assessed in the ER and had a CT which showed fluid adjacent to the pancreas, stomach and duodenum with differential diagnosis including pancreatitis, duodenitis or gastritis. Patient was admitted for further management. Hospital Course: Patient admitted to the medical floor and the following problems addressed: Intractable abdominal pain Fluid collection in pancreatic head area. Fluid collection likely secondary to pancreatitis GI consulted, patient seen by Dr. Chairez who performed EGD EGD showed gastritis. Lipase level was normal. CT abdomen and pelvis shows a distended gallbladder, no gallstones. HIDA scan was done which was negative for acute cholecystitis but indicated biliary dyskinesia. Plan was to obtain MRCP to further evaluate the pancreas and gallbladder and CBD Patient became unresponsive and MRCP could not be done. She was evaluated General surgery Dr. Nielsen. Patient treated with IV Protonix. Lipase level was normal. Patient treated with IV hydration Also treated with empiric IV Zosyn Glioblastoma multiforme Cerebral edema Midline brain shift Altered mental status Patient became unresponsive. Stroke protocol was initiated CT head demonstrated increased swelling/edema around the glioblastoma mass with midline shift. Patient spouse updated outpatient clinical condition. Spouse wants to proceed with aggressive measures. Patient immediately transferred to the ICU and intubated and placed on mechanical ventilation. Case discussed with neurology Dr. Spencer and patient given high-dose Solu- Medrol 1 g IV and placed on dexamethasone IV for maintaining Oral Keppra changed to IV Keppra. Transfer to tertiary center for patient to be evaluated by neurosurgery recommended Spouse preferred [facility] where she previously had craniotomy for the glioblastoma in February 2023. Patient accepted to [facility]. Vitals are stable for transfer. Hyponatremia Dehydration Resolved with IV hydration Monitor BMP. Hypokalemia Potassium replaced as needed Elevated AST Unknown significance Resolved. Leukocytosis Leukocytosis resolved Patient treated with empiric Zosyn Vital Signs/Physical Exam: Temp Pulse Resp BP Pulse Ox 98.6 F 99 H 18 144/99 H 100 12/10/23 15:52 12/10/23 17:00 12/10/23 17:00 12/10/23 17:00 12/10/23 17:00 General: Unresponsive HEENT: Other (Intubated) Neck: JVD not distended Respiratory: Clear to auscultation bilaterally, Normal air movement Cardiovascular: No edema, Normal S1 S2, Other (Tachycardia) Gastrointestinal: Normal bowel sounds, Non-distended, Tenderness (Epigastrium) Musculoskeletal: No swelling, No tenderness Integumentary: No rashes, No cyanosis Neurological: Other (Unresponsive, withdraws all limbs to pain) Laboratory Data at Discharge: WBC 6.50 thou/uL (4.3-10.9) 12/10/23 14:26 Hgb 8.9 g/dL (12.0-15.0) L 12/10/23 14:26 Hct 26.8 % (36.0-45.0) L 12/10/23 14:26 Plt Count 85 thou/uL (152-406) L 12/10/23 14:26 PT 14.4 SECONDS (9.4-12.5) H 12/10/23 14:58 INR 1.30 12/10/23 14:58 APTT 29.3 SECONDS (24.3-36.9) 12/10/23 14:58 Sodium 137 mEq/L (136-145) 12/10/23 14:26 Potassium 3.9 mEq/L (3.5-5.1) D 12/10/23 14:26 BUN 12 mg/dL (7-18) 12/10/23 14:26 Creatinine 0.54 mg/dL (0.55-1.02) L 12/10/23 14:26 Glucose 135 mg/dL (74-106) H 12/10/23 14:26 Phosphorus 3.1 mg/dL (2.5-4.9) 12/09/23 15:10 Magnesium 2.0 mg/dL (1.6-2.4) 12/09/23 15:10 Total Bilirubin 0.8 mg/dL (0.2-1.0) 12/10/23 05:02 AST 20 U/L (15-37) 12/10/23 05:02 ALT 39 U/L (13-56) 12/10/23 05:02 Alkaline Phosphatase 63 U/L (45-117) 12/10/23 05:02 Lipase 36 U/L (13-75) 12/10/23 05:02 Home Medications: Apixaban [Eliquis] 5 mg PO BID 12/08/23 Escitalopram Oxalate 10 mg PO DAILY 12/08/23 Levetiracetam [Keppra] 750 mg PO BID 12/08/23 dexAMETHasone [Dexamethasone] 4 mg PO BID 12/08/23 Followup: Luke Bermudez MD [Primary Care Provider] - Time spent managing pt's care (in minutes): 44
[2023-12-10] MEDS: FENTANYL CITR 100 MCG/2 ML IV PRN (18:06)
--- NOTE | 2023-12-10 19:15 | CON ---
Date of Consultation: 12/10/2023 Reason For Consultation: Abdominal pain. History Of Present Illness: The patient is a 63-year-old female who was admitted 2 days ago with abd ominal pain. She has a history of glioblastoma multiforme, on chemotherapy. Her pain started in the left upper quadrant about 3 days prior to admission with distention of the abdomen. There is no jenaro sea or vomiting. All of this information is obtained from the chart as when I went to see the patien t, the patient was unresponsive. She was not awake. She was somnolent and was very difficult to dot use and this was a change in her mental status and at that time, we checked her vital signs and finn d a code stroke, and patient was immediately taken down and the stroke protocol was followed. On exa m of her abdomen, she was tender in the epigastric region, but there was no peritonitis. Remainder o f the history will be obtained through the medical records. She was being treated for the abdominal pain. She had a CT which showed possible pancreatitis or duodenitis and there was fluid around the p ancreas, which had increased on the followup CT, and I was consulted. She also had a HIDA scan, whic h showed a lower ejection fraction and sludge in the gallbladder, but there was no evidence of acute cholecystitis. Review of Systems: Otherwise, unremarkable. Past Medical History: Significant for glioblastoma multiforme. Past Surgical History: at this time. Allergies: NO ALLERGIES. Social History: Patient currently does not smoke or drink. Family History: Not contributory. Physical Examination: Vital Signs: Stable. She was afebrile. She was saturating at 100%, when I saw her. Head and Neck: The patient is somnolent, unable to open eyes, barely moves when the sternal rub is d one. Chest: Clear. Heart: S1, S2. Abdomen: Tender in the epigastric region, but no peritonitis. Extremity: Adequately perfused. Nont sammy. Neuro: Patient is not moving spontaneously. There is definitely a change in mental status. Laboratory Data: Reviewed. White count was 12.9 on admission, it is currently 6.4. H and H was 9.4 and 27.2 today. Lipase was within normal limits. Potassium was low and it was being replaced. Rad iology test reviewed. She has a benign cyst on the liver. On CAT scan, she had increase in the non- loculated fluid along the transverse mesocolon, likely reactive. Stomach wall was slightly thickened . She had an EGD which was unremarkable and the gallbladder had some sludge in it. Differential on CAT scan included atypical pancreatitis or gastric or duodenal inflammation. Assessment: Patient with abdominal pain with history of glioblastoma multiforme with possible pancre atitis or duodenal inflammation and cholelithiasis. However, her most important concern right now is her change in mental status. The patient was immediately taken for CT and stroke protocol is being followed. I will follow the patient after the report is out and make further recommendation. Andregraciemandy post, her mental status changes take precedence over her abdominal issues, at this time. Plan of care discussed with Dr. Medina. JEREMIAS/DAVID Voice ID: [id number] Report ID: [id number]
--- NOTE | 2023-12-10 19:33 | P.PN ---
Date of Service: 12/10/23 Patient sedated with etomidate, midazolam, and suxamethonium. Patient bagged and successfully intubated with ETT 7.5. Vital stable during intubation. Time of intubation: 1520 hours.
--- NOTE | 2023-12-10 19:37 | P.PN ---
Date of Service: 12/10/23 Stroke protocol initiated because Dr. Nielsen had noted patient was unresponsive. On examination patient withdraws all limbs to pain, pupils are equal and reactive to light, NIHSS performed and score is 22. Head CT obtained, CTA head and neck also obtained stat. Received a call from radiology regarding head CT critical result. Radiology reported right-sided cerebral hemisphere edema with 15 mm [id number] midline shift, findings significantly progressive since 11/25/2023 prior MRI study. Patient was transferred immediately to the ICU. Patient sedated with etomidate, midazolam, and suxamethonium. Patient bagged and successfully intubated with ETT 7.5. Vital stable during intubation. Time of intubation: 1520 hours. Patient given high-dose Solu-Medrol and IV Keppra. Goals of care discussed with patient and spouse who opted for aggressive measures. Transfer to [facility] initiated. Goals of care discussed Critical care time spent managing patient neurologic condition as above 48 minutes.
--- NOTE | 2023-12-11 16:36 | EKG ---
Test Date: 2023-12-10 Test Time: 14:35:36 [employer] Software Consultant: HUY MEASUREMENT RESULTS: Intervals: Rate: 79 AK: 122 QRSD: 76 QT: 388 QTc: 444 [place]: P: 20 AK: 122 QRS: 16 T: 65 INTERPRETIVE STATEMENTS: Normal sinus rhythm Nonspecific T wave abnormality Abnormal ECG No previous ECG available for comparison Electronically Signed On 12-11-23 16:32:20 CDT by Bola Conner
--- NOTE | 2023-12-11 19:57 | CON ---
Date of Consultation: 12/09/2023 Reason For Consultation: Midepigastric, right upper quadrant and left upper quadrant pain with histo ry of glioblastoma, on chemotherapy. History Of Present Illness: The patient is a 63-year-old white female with history of glioblastoma, presented to hospital with severe abdominal pain. Patient unable to give clear history due to the pa in. She is twisted in bed somewhat and not clear. states that the pain began approximately 3 days prior to admission, associated with distention of the abdomen, but no nausea, vomiting, fevers , chills, diarrhea, black stools, bloody stools, hematochezia, or other. The patient does have a his tory of glioblastoma and on chemotherapy. CT scan of the abdomen and pelvis revealed normal pancreas , normal bowel wall, normal stomach. There is an area of fluid between the pancreas, stomach, and th e duodenum, which is approximately 2 x 4 cm as per radiology, but there is no fluid near the gallblad guido and the gallbladder wall appears normal. Past Medical History: Significant for glioblastoma, status post chemotherapy recently. Allergies: NKDA. Social History: She is , with at bedside. Two children. No tobacco, quit 3 months a go. No alcohol. Family History: Father of what appears ALS and mother of [place] disease. The __. It looks like parents have both these diseases of ALS, [place] disease and the other having [place] disease. However, patient has been tested according to and she does not have eithe r one, ALS or [place] disease. Review of Systems: The patient had midepigastric, right upper quadrant and left upper quadrant pain. History of gliobla stoma of the brain. She denies any fevers, chills, night sweats, nausea, vomiting, diarrhea, constip ation, muscle aches, joint aches, backaches, chest pain, short of breath, seizure, syncope. states no depression or anxiety. I would imagine her mood somewhat depressed with her current condit ion in hospital. Physical Examination: Vital Signs: Patient is 5 feet 4 inch, 108 pounds. BMI of 30.9 kg/sq m, temperature of 97.3 degrees Fahrenheit, pulse 76, respirations 18, blood pressure 108/72, O2 saturation 95% on room air. General: She is an obese female lying in bed, in moderate distress. she is twisting her constantly, unable to communicate except when she stops to say yes and no to presented questi ons to her. Cardiac: Regular rate. No gallops, rubs. Abdomen: Positive bowel sounds. Soft, nondistended, obese. Pain everywhere you push basically. Wi th some mild guarding but no rebound. No peritoneal or Nguyen sign. Extremities: No clubbing, cyanosis, or edema. Neuro: Able to move head and somewhat extremities. Laboratory Data: The patient has a white count of 8.4, down from 12.9 on admission; hemoglobin 10.0; hematocrit 29.5; MCV of 102.5; platelet count of 103, down from 170 on admission. Polys of 9%, mono cytes 6%. Sodium 141, potassium 4.1, chloride 108, bicarb 29, BUN 15, creatinine of 0.59, calcium 8. 2, iron saturation 41.2%, ferritin of 684, total bilirubin 0.7, AST of 18, ALT of 47, alkaline phosph atase 66, total protein 5.7, albumin 2.1. UA showed 75 leukocyte esterase, no bacteria seen, pH grea ter than 1.03. CT of abdomen and pelvis, ill-defined fluid collection between the pancreas, stomach, and duodenum. Pancreas, stomach, and duodenum all appeared normal, especially gallbladder felt norm al as well. Fluid was not in her gallbladder. Impression: 1.Midepigastric, right upper quadrant, and left upper quadrant pain, seems to be improving with the treatment of her sepsis. Her white count has decreased from 12.9 down to 8.4 with IV antibiotics. W e will need to continue this. Etiology of the fluid collection is unclear. The patient still could have gallbladder disease or ulcer disease or other that could be causing the pain. Therefore, we yin l proceed with EGD to evaluate for possible ulcer or gastritis that might be causing her severe pain. We will consider HIDA scan for possible gallbladder disease. Consider mesenteric ischemia and ther efore we will get a D-dimer and MRA. 2.History of glioblastoma, on chemotherapy. Recommendation: 1.Continue IV fluids. 2.Continue IV antibiotics with white cell count down from 12.4 to 8.9, polys down from 86% to 85%. 3.Blood cultures checked x2. With this, white count up to 12.9 with sepsis. 4.Repeat lipase, amylase, and check CA-19-9 and D-dimer. 5.Consider HIDA scan as patient with unexplained abdominal pain. 6.Could proceed with urgent EGD. KT/DAVID Voice ID: [id number] Report ID: [id number]
== END 2023-12-10 18:05 | disposition short-term general hospital (02) | DRG 871 ==
LOC: ER 19:59 → ERHOLD 22:55 → 2ND 12-08 12:30 → 3RD-ICU 12-10 14:59
PROVIDERS: ADMIT Family Medicine; ATTEND Internal Medicine
PROC: 4A033R1 Measurement of Arterial Saturation, Peripheral, Percutaneous Approach (ICD-10-PCS; 2023-12-07)
PROC: 5A1935Z Respiratory Ventilation, Less than 24 Consecutive Hours (ICD-10-PCS; 2023-12-07)
PROC: 0BH17EZ Insertion of Endotracheal Airway into Trachea, Via Natural or Artificial Opening (ICD-10-PCS; 2023-12-07)
PROC: 0DB78ZX Excision of Stomach, Pylorus, Via Natural or Artificial Opening Endoscopic, Diagnostic (ICD-10-PCS; 2023-12-09)
PROC: 0DB68ZX Excision of Stomach, Via Natural or Artificial Opening Endoscopic, Diagnostic (ICD-10-PCS; principal; 2023-12-09 12:30)
PROC: 02HV33Z Insertion of Infusion Device into Superior Vena Cava, Percutaneous Approach (ICD-10-PCS; 2023-12-10)
PROC: 0BH17EZ Insertion of Endotracheal Airway into Trachea, Via Natural or Artificial Opening (ICD-10-PCS; 2023-12-10)
PROC: 0T9B70Z Drainage of Bladder with Drainage Device, Via Natural or Artificial Opening (ICD-10-PCS; 2023-12-10)
DX: A41.9 Sepsis, unspecified organism (principal); G93.6 Cerebral edema; K85.90 Acute pancreatitis without necrosis or infection, unspecified; J96.00 Acute respiratory failure, unspecified whether with hypoxia or hypercapnia; E87.1 Hypo-osmolality and hyponatremia; C71.9 Malignant neoplasm of brain, unspecified; K29.50 Unspecified chronic gastritis without bleeding; E86.0 Dehydration; K76.89 Other specified diseases of liver; E87.6 Hypokalemia; E66.9 Obesity, unspecified; D72.829 Elevated white blood cell count, unspecified; R79.89 Other specified abnormal findings of blood chemistry; Z68.30 Body mass index [BMI] 30.0-30.9, adult; Z79.01 Long term (current) use of anticoagulants; Z79.899 Other long term (current) drug therapy
CPT/HCPCS: 36415; 36600; 70450; 70496; 70498; 71045; 74174; 74177; 76705; 78227; 80048; 80053; 81001; 82607; 82805; 82947; 83690; 83735; 84100; 85025; 85610; 85730; 88305; 88312; 93005; 94002; 94762; 96374; 96375; 97161; 97530; 99285; A9537; J0171; J1100; J1170; J1650; J1953; J2001; J2250; J2270; J2405; J2470; J2543; J2704; J2805; J2919; J3010; J7030; J7042; Q9967